=== PATIENT | female | born 1970 | race Caucasian/White ===

== ENCOUNTER 2017-11-23 13:12 | Outpatient (CLI) | payer OTHER | END 2017-11-23 13:20 | disposition home or self-care (01) | LOC: MAMO-SONO 13:12 | DX: Z12.31 Encounter for screening mammogram for malignant neoplasm of breast (principal); N64.89 Other specified disorders of breast; N64.4 Mastodynia; N60.11 Diffuse cystic mastopathy of right breast ==

== ENCOUNTER 2022-01-22 13:13 | Outpatient (CLI) | payer OTHER | END 2022-01-22 13:28 | disposition home or self-care (01) | LOC: PPH VACUNA 13:13 | PROVIDERS: ATTEND Emergency Medicine Pediatric Emergency Medicine | DX: Z23 Encounter for immunization (principal) ==

== ENCOUNTER 2022-05-07 11:05 | Outpatient (CLI) | payer OTHER | END 2022-05-07 11:15 | disposition home or self-care (01) | LOC: PPH VACUNA 11:05 | PROVIDERS: ATTEND Emergency Medicine Pediatric Emergency Medicine | DX: Z23 Encounter for immunization (principal) ==

== ENCOUNTER 2022-05-07 11:09 | Outpatient (CLI) | payer OTHER | END 2022-05-07 11:19 | disposition home or self-care (01) | LOC: PPH VACUNA 11:09 | PROVIDERS: ATTEND Emergency Medicine Pediatric Emergency Medicine | DX: Z23 Encounter for immunization (principal) ==

== ENCOUNTER 2024-04-11 14:10 | Outpatient (CLI) | payer OTHER | END 2024-04-11 14:15 | disposition home or self-care (01) | LOC: NUCLEAR 14:10 | PROVIDERS: ATTEND Obstetrics & Gynecology | DX: M81.0 Age-related osteoporosis without current pathological fracture (principal) ==

== ENCOUNTER 2024-04-11 14:26 | Outpatient (CLI) | payer OTHER | END 2024-04-11 14:36 | disposition home or self-care (01) | LOC: MAMO-SONO 14:26 | PROVIDERS: ATTEND Obstetrics & Gynecology | DX: N60.11 Diffuse cystic mastopathy of right breast (principal); N60.12 Diffuse cystic mastopathy of left breast ==

== ENCOUNTER 2025-04-18 16:15 | Outpatient (CLI) | payer OTHER | END 2025-04-18 16:26 | disposition home or self-care (01) | LOC: MAMO-SONO 16:15 | PROVIDERS: ATTEND Obstetrics & Gynecology | DX: N60.11 Diffuse cystic mastopathy of right breast (principal); N60.12 Diffuse cystic mastopathy of left breast; Z12.31 Encounter for screening mammogram for malignant neoplasm of breast ==